=== PATIENT | male | born 1950 | race Caucasian/White ===

== ENCOUNTER 2021-01-17 06:51 | Outpatient (REF) | payer MEDICARE, SELFPAY ==
[2021-01-17 08:16] LABS: MANUAL DIFF FLAG NO
[2021-01-17 08:22] LABS: Basophils Percent Auto 0.5 % (0-2); Eosinophils Percent Auto 0.7 % (0-4); Hematocrit 46.2 % (42-52); Hemoglobin 15.3 g/dl (14.0-18.0); Imm Gran Abs Auto 0.01 X10*3/uL (0.00-0.03); Imm Gran Pct Auto 0.2 % (0.0-0.4); Lymphocytes Absolute Auto 1.5 X10*3/uL (1.2-4.9); Lymphocytes Percent Auto 23.8 % (20-40); Mean Corpuscular HGB Conc 33.1 g/dl (31.0-36.0); Mean Corpuscular Hemoglobin 29.8 pg (27.0-33.0); Mean Corpuscular Volume 89.9 fL (80-98); Mean Platelet Volume 10.6 fL (9.4-12.4); Monocytes Absolute Auto 0.7 X10*3/uL (0.1-1.2); Monocytes Percent Auto 10.8 % (2-11); Neutrophils Absolute Auto 3.9 X10*3/uL (2.0-8.3); Platelet Count 263 X10*3/uL (160-400); Red Blood Count 5.14 X10*6/uL (4.60-5.80); Red Cell Distribution Width 11.9 % (11.0-16.0); White Blood Count 6.1 X10*3/uL (4.8-10.8)
[2021-01-17 08:34] LABS: Estimated Average Glucose 108 mg/dL; Hemoglobin A1c % 5.4 %
[2021-01-17 08:43] LABS: Alanine Aminotransferase 12 U/L (0-40); Albumin Level 4.4 g/dL (3.5-5.0); Alkaline Phosphatase 60 U/L (39-117); Anion Gap 15 (12-20); Aspartate Amino Transferase 15 U/L (5-37); Bilirubin Total 1.5 mg/dL (0.0-1.0); Blood Urea Nitrogen 12 mg/dL (9-16); Calcium 9.6 mg/dL (8.4-10.2); Carbon Dioxide 26 mmol/L (22-29); Chloride 102 mmol/L (96-108); Cholesterol 191 mg/dL; Estimated Glomerular Filt Rate > 60; Glucose Random 101 mg/dL (60-115); HDL Cholesterol 70 mg/dL; LDL Cholesterol Calculated 98 mg/dl; Potassium 4.2 mmol/L (3.3-5.1); Sodium 139 mmol/L (135-145); Total Protein 6.8 g/dL (6.5-8.0); Triglycerides 117 mg/dL
[2021-01-17 09:09] LABS: Prostate Specific Antigen Scr 1.39 ng/mL (<0.05-4.0)
== END 2021-01-17 06:52 | disposition home or self-care (01) ==
LOC: HO.LAB 06:51
PROVIDERS: PCP Internal Medicine; Visit Provider Internal Medicine
DX: E78.00 Pure hypercholesterolemia, unspecified (principal); N40.0 Benign prostatic hyperplasia without lower urinary tract symptoms; R73.03 Prediabetes; R03.0 Elevated blood-pressure reading, without diagnosis of hypertension
CPT/HCPCS: 36415; 80053; 80061; 83036; 84153; 85025

== ENCOUNTER 2022-03-29 06:57 | Outpatient (REF) | payer MEDICARE, SELFPAY ==
[2022-03-29 07:07] LABS: MANUAL DIFF FLAG NO
[2022-03-29 07:28] LABS: Basophils Percent Auto 0.4 % (0-2); Eosinophils Absolute Auto 0.1 X10*3/uL (0.0-0.4); Eosinophils Percent Auto 0.9 % (0-4); Hematocrit 47.1 % (42.0-52.0); Hemoglobin 15.7 g/dl (14.0-18.0); Imm Gran Abs Auto 0.02 X10*3/uL (0.00-0.03); Imm Gran Pct Auto 0.3 % (0.0-0.4); Lymphocytes Absolute Auto 1.6 X10*3/uL (1.2-4.9); Mean Corpuscular HGB Conc 33.3 g/dl (31.0-36.0); Mean Corpuscular Hemoglobin 29.7 pg (27.0-33.0); Mean Corpuscular Volume 89.2 fL (80.0-98.0); Mean Platelet Volume 9.9 fL (9.4-12.4); Monocytes Absolute Auto 0.6 X10*3/uL (0.1-1.2); Neutrophils Absolute Auto 4.7 x10*3/uL (2.0-8.3); Neutrophils Percent Auto 67.4 % (45-73); Platelet Count 266 X10*3/uL (160-400); Red Blood Count 5.28 X10*6/uL (4.60-5.80)
[2022-03-29 07:40] LABS: Appearance Urine Clear; Color Urine Yellow; Glucose Urine UA Negative (Negative); Leukocyte Esterase Urine Negative (Negative); Nitrite Urine Negative (Negative); Specific Gravity - Urine 1.015 (1.005-1.025); Urine Blood Negative (Negative); Urine Ketones 40 mg/dL (Negative); Urine Protein Negative (Neg-Trace)
[2022-03-29 07:56] LABS: Alanine Aminotransferase 20 U/L (0-40); Albumin Level 4.4 g/dL (3.5-5.0); Alkaline Phosphatase 55 U/L (39-117); Anion Gap 17 (12-20); Aspartate Amino Transferase 18 U/L (5-37); Bilirubin Total 1.2 mg/dL (0.0-1.0); Blood Urea Nitrogen 13 mg/dL (9-16); Calcium 9.3 mg/dL (8.4-10.2); Carbon Dioxide 24 mmol/L (22-29); Chloride 103 mmol/L (96-108); Cholesterol 201 mg/dL; Estimated Glomerular Filt Rate > 60; Glucose Fasting 94 mg/dL (60-99); HDL Cholesterol 67 mg/dL; LDL Cholesterol Calculated 116 mg/dl; Potassium 4.3 mmol/L (3.3-5.1); Sodium 140 mmol/L (135-145); Total Protein 6.8 g/dL (6.5-8.0); Triglycerides 92 mg/dL
[2022-03-29 08:17] LABS: Prostate Specific Antigen 1.14 ng/mL (<0.05-4.0)
== END 2022-03-29 06:58 | disposition home or self-care (01) ==
LOC: HO.LAB 06:57
PROVIDERS: PCP Internal Medicine; Visit Provider Internal Medicine
DX: N40.0 Benign prostatic hyperplasia without lower urinary tract symptoms (principal); E78.00 Pure hypercholesterolemia, unspecified; Z12.5 Encounter for screening for malignant neoplasm of prostate
CPT/HCPCS: 36415; 80053; 80061; 81003; 84153; 85025

== ENCOUNTER 2023-05-16 07:27 | Outpatient (REF) | payer MEDICARE, SELFPAY ==
[2023-05-16 07:40] LABS: MANUAL DIFF FLAG NO
[2023-05-16 08:49] LABS: Basophils Percent Auto 0.5 % (0-2); Eosinophils Absolute Auto 0.1 X10*3/uL (0.0-0.4); Hematocrit 46.7 % (42.0-52.0); Hemoglobin 15.5 g/dl (14.0-18.0); Imm Gran Abs Auto 0.01 X10*3/uL (0.00-0.03); Imm Gran Pct Auto 0.2 % (0.0-0.4); Lymphocytes Absolute Auto 1.7 X10*3/uL (1.2-4.9); Lymphocytes Percent Auto 27.2 % (20-40); Mean Corpuscular HGB Conc 33.2 g/dl (31.0-36.0); Mean Corpuscular Hemoglobin 29.5 pg (27.0-33.0); Mean Platelet Volume 10.5 fL (9.4-12.4); Monocytes Absolute Auto 0.6 X10*3/uL (0.1-1.2); Monocytes Percent Auto 9.7 % (2-11); Neutrophils Absolute Auto 3.7 x10*3/uL (2.0-8.3); Neutrophils Percent Auto 61.4 % (45-73); Platelet Count 261 X10*3/uL (160-400); Red Blood Count 5.25 X10*6/uL (4.60-5.80); Red Cell Distribution Width 12.3 % (11.0-16.0); White Blood Count 6.1 X10*3/uL (4.8-10.8)
[2023-05-16 09:14] LABS: Alanine Aminotransferase 16 U/L (0-40); Albumin Level 4.3 g/dL (3.5-5.0); Alkaline Phosphatase 57 U/L (39-117); Anion Gap 16 (12-20); Aspartate Amino Transferase 18 U/L (5-37); Bilirubin Total 1.4 mg/dL (0.0-1.0); Blood Urea Nitrogen 12 mg/dL (9-16); Calcium 9.1 mg/dL (8.4-10.2); Carbon Dioxide 24 mmol/L (22-29); Chloride 102 mmol/L (96-108); Cholesterol 184 mg/dL (<200); Estimated Glomerular Filt Rate > 60; Glucose Fasting 98 mg/dL (60-99); HDL Cholesterol 70 mg/dL (>40); LDL Cholesterol Calculated 97 mg/dL (<100); Potassium 4.4 mmol/L (3.3-5.1); Sodium 138 mmol/L (135-145); Triglycerides 85 mg/dL (<150)
[2023-05-16 09:33] LABS: Prostate Specific Antigen 1.31 ng/mL (<0.05-4.0)
== END 2023-05-16 07:28 | disposition home or self-care (01) ==
LOC: HO.LAB 07:27
PROVIDERS: PCP Internal Medicine; Visit Provider Internal Medicine
DX: Z12.5 Encounter for screening for malignant neoplasm of prostate (principal); E78.00 Pure hypercholesterolemia, unspecified; N40.0 Benign prostatic hyperplasia without lower urinary tract symptoms
CPT/HCPCS: 36415; 80053; 80061; 84153; 85025

== ENCOUNTER 2024-05-20 08:58 | Day surgery (SDC) | payer MEDICARE, SELFPAY ==
[2024-05-18 14:59] VITALS: BMI 24.0
--- NOTE | 2024-05-19 08:51 | P.CONAN_ITS ---
Documented by User: Brittani Low NP 05/19/24 08:51 HPI - Anesthesia Eval Consult details Narrative: 73yo M for Colonoscopy [facility] Past Medical History Medical History Hyperlipidemia Surgical History Surgical History Hx of basal cell carcinoma excision Hx of tonsillectomy H/O colonoscopy Social History Social History Household Members Other:: lives alone Are you a primary managed care coordinator to a significant other at home: No Do you presently have visiting nurse or other home services: No Patient Tobacco Use Status: Never used Tobacco Use of substances other than those prescribed or required for medical reasons: No Have you been hit, kicked, punched, or otherwise hurt by someone within the past year? If so, by whom?: No Are you DNR?: No Advance Directives: No Advance Directives Information Provided: Yes Recently lost weight without trying: No Nutrition Risks: No Nutritional Risk Poor oral hygiene: No Meds Allergies Allergy/AdvReac Type Severity Reaction Status Date / Time No Known Allergies Allergy Verified 05/20/24 09:01 Home Medications ?Medication ?Instructions ?Recorded ?Confirmed ?Last Taken ?Type atorvastatin 10 mg tablet 10 mg PO DAILY 05/18/24 05/18/24 Unknown History cholecalciferol (vitamin D3) 25 25 mcg PO DAILY 05/18/24 05/18/24 Unknown History mcg (1,000 unit) capsule (Vitamin D3) Exam Height,Weight and Vital Signs: Height 5 ft 9.75 in Weight 75.296 kg Assessment and Plan Assessment Anesthesia Assessment: Chart Reviewed Documented by User: Catherine Lopez MD 05/20/24 10:55 PMFSH Past Medical History Medical History Hyperlipidemia Family History Family history of problems with anesthesia: No Surgical History Surgical History Hx of basal cell carcinoma excision Hx of tonsillectomy H/O colonoscopy History of Problems with Anesthesia: No Social History Social History Household Members Other:: lives alone Are you a primary managed care coordinator to a significant other at home: No Do you presently have visiting nurse or other home services: No Patient Tobacco Use Status: Never used Tobacco Use of substances other than those prescribed or required for medical reasons: No Have you been hit, kicked, punched, or otherwise hurt by someone within the past year? If so, by whom?: No Are you DNR?: No Advance Directives: No Advance Directives Information Provided: Yes Recently lost weight without trying: No Nutrition Risks: No Nutritional Risk Poor oral hygiene: No Meds Allergies Allergy/AdvReac Type Severity Reaction Status Date / Time No Known Allergies Allergy Verified 05/20/24 09:01 Home Medications ?Medication ?Instructions ?Recorded ?Confirmed ?Last Taken ?Type atorvastatin 10 mg tablet 10 mg PO DAILY 05/18/24 05/18/24 Unknown History cholecalciferol (vitamin D3) 25 25 mcg PO DAILY 05/18/24 05/18/24 Unknown History mcg (1,000 unit) capsule (Vitamin D3) Exam Airway Mallampati Class: II TM Dist: >3cm Heart: rrr Lungs: cta Assessment and Plan Assessment Anesthesia Assessment: Anesthesia Plan Discussed Final Anesthetic Review Family History of Problems with Anesthesia: No History of Problems with Anesthesia: No NPO: Yes ASA Class: II Final Preanesthetic Review: No Changes in Pt Med Stat, Meds/Allgs Chart Reviewed, Consent Obtained/Reviewed and Anes Risks/Benef Reviewed Patient Risk: Low Procedure Risk: Low Anesthetic Plan Anesthetic Plan: MAC: Disposition: Standard PACU
--- OUTSIDE RECORDS SUMMARY | 2024-05-20 09:00 | XMS_ITS ---
Author Organization [facility] Address [address] [place] [address] Care Team Providers Care Human Resource Manager Name Role Phone Eliseo Ferrari MD Primary Care Provider Carlos Arreola Unavailable [phone] REASON FOR VISIT screening Encounters Encounter Location Date Provider Diagnosis [facility] Outpatient [address] [place] [phone] 05/20/2024 Carlos Bonds PLAN OF TREATMENT Next Appt Details Provider Name:Carlos Bonds , 05/20/2024 10:40:00 AM, [address] [place] [address], [phone],
--- OUTSIDE RECORDS SUMMARY | 2024-05-20 09:00 | XMS_ITS ---
Author Organization [facility] Address [address] [place] [address] Care Team Providers Care Mail Processing Clerk Name Role Phone Eliseo Ferrari MD Primary Care Provider Unavaila Carlos Parikh Unavailable [phone] Delvis Lau, Froilan Unavailable [phone] REASON FOR VISIT Patient presents today for a COLON RECALL Encounters Encounter Location Date Provider Diagnosis [facility] [address] [place] [phone] 02/05/2024 Froilan Edmondson Jr PLAN OF TREATMENT Next Appt Details Provider Name:Carlos Bonds , 05/20/2024 10:40:00 AM, [address] [facility] , [place], [place], [phone],
--- OUTSIDE RECORDS SUMMARY | 2024-05-20 09:00 | XMS_ITS ---
Author Organization [facility] Address [address] [place] [address] Care Team Providers Care Sed High School Teacher Name Role Phone Eliseo Ferrari MD Primary Care Provider Carlos Arreola Unavailable [phone] ALLERGIES No Known Allergies REASON FOR VISIT Patient presents today for a colon recall MEDICATIONS Medication SIG (Take, Route, Frequency, Duration) Notes Start Date End Date Status Vitamin D Active Lipitor 10mg Active SOCIAL HISTORY Sex Assigned At : Social History Observation Description Sex Assigned At Unknown Alcohol Screen Question Answer Notes Did you have a drink contain ing alcohol in the past year? Yes Points 4 Interpretation Positive How often did you have 6 or more drinks on one occasion in the past year? Never (0 point) How many drinks did you have on a typical day when you were drinking in the past year? 1 or 2 drinks (0 point) How often did you have a dri nk containing alcohol in the past year? 4 or more times a week (4 points) PROBLEMS Problem Type ICD Code Onset Dates Problem Status W/U Status Risk SNOMED Code Notes Problem Colon cancer screening (Z12.11) Active confirmed Colon cancer screening (701344009) Problem Encounter for other preprocedural examination (Z01.818) Active confirmed Pre-procedure evaluation check (833422221) VITAL SIGNS BMI 23.99 kg/m2 02/04/2024 Blood pressure systolic 00 mm Hg 02/04/20 24 Blood pressure diastolic 00 mm Hg 024 Height 69.75 in 02/04/2024 Weight 166 lbs 02/04/2024 Encounters Encounter Location Date Provider Diagnosis [facility] [address] [place] [address] 02/04/2024 Carlos Bonds Colon cancer screeni ng Z12.11 and Encounter for other preprocedural examination Z01.818 ASSESSMENTS Encounter Date Diagnosis Assessment Notes Treatment Notes Treatment Clinical Notes 02/04/2024 Colon cancer screening (ICD-10 - Z12.11) 02/04/2024 Encounter for other preprocedural examination (ICD-10 - Z01.818) PLAN OF TREATMENT Future Test Test Name Order Date COLONOSCOPY 02/04/2024 Next Appt Details Follow Up: prn, Reason: Provider Name:Carlos Bonds , 05/20/2024 10:40:00 AM, [address] [place] [address] , [place], [place], [phone], Progress Notes * Examination Category Sub-Category Detail Notes General Examination GENERAL APPEARANCE: pleasant , well nourished, well developed, in no acute distress EYES: sclera non-icteric NECK/THYROID: no cervical lymphade nopathy, neck supple HEART: S1, S2 normal LUNGS: clear to auscultatio n bilaterally ABDOMEN: normal bowel sounds, no guarding or rigidity, no hepatosplenomegaly, no masses palpable, soft, nontender, nondistended. NEUROLOGIC: alert and oriented SKIN: nonjaundiced, no spi praneeth angiomata. EXTREMITIES: no edema ORAL CAVITY: mucosa moist
--- OUTSIDE RECORDS SUMMARY | 2024-05-20 09:01 | XMS_ITS | Patient Health Record ---
Author Organization [facility] Address [address] [place] [address] Care Team Providers Care Veterinary Pharmacologist Name Role Phone Eliseo Ferrari MD Primary Care Provider Carlos Arreola Unavailable [phone] Froilan Edmondson Jr Unavailable ALLERGIES No Known Allergies REASON FOR REFERRAL No Information MEDICATIONS Medication SIG (Take, Route, Frequency, Duration) Notes Start Date End Date Status Vitamin D Active Lipitor 10mg Active SOCIAL HISTORY Sex Assigned At : Social History Observation Description Sex Assigned At Unknown PROBLEMS Problem Type ICD Code Onset Dates Problem Status W/U Status Risk SNOMED Code Notes Problem Colon cancer screening (Z12.11) Active confirmed Colon cancer screening (926981410) Problem Encounter for other preprocedural examination (Z01.818) Active confirmed Pre-procedure evaluation check (973854659) VITAL SIGNS Blood pressure diastolic 00 mm Hg 02/04/2024 Height 69.75 in 02/04/2024 Blood pressure systolic 00 mm Hg 02/04/2024 Weight 166 lbs 02/04/2024 BMI 23.99 kg/m2 02/04/2024 Encounters Encounter Location Date Provider [place] [facility] [place] [address] [place] [phone] 05/20/2024 Carlos Bonds [facility] [address] [place] [phone] 02/05/2024 Froilan Edmondson Jr [facility] [address] [place] [phone] 02/04/2024 Carlos Bonds Colon cancer screening Z12.11 and Encounter for other preprocedural examination Z01.818 [facility] [address] [place] [address] 11/22/2023 Carlos Bonds ASSESSMENTS Encounter Date Diagnosis Assessment Notes Treatment Notes Treatment Clinical Notes 02/04/2024 Colon cancer screening (ICD-10 - Z12.11) 02/04/2024 Encounter for other preprocedural examination (ICD-10 - Z01.818) PLAN OF TREATMENT Future Test Test Name Order Date COLONOSCOPY 09/09/2013 COLONOSCOPY 02/04/2024 Next Appt Details Provider Name:Carlos Bonds , 05/20/2024 10:40:00 AM, [address] [facility] , [place], [place], [phone], Insurance Providers Payer Name Payer Address Payer Phone Subscriber Number Group Number Insured Name Patient Relationship to Insured Coverage Start Date Coverage End Date MEDICARE OF [place] [address] [place] [address] [id number] MARK MONROE Self - patient is the insured [employer] ATT[employer] CLAIMS [address] [place] [address] [phone] [id number] MARK MONROE Self - patient is the insured MEDICAL (GENERAL) HISTORY Medical History History ICD Code Hyperlipidemia Denies MD,DM,CVA,Lung disease,renal dise ase Colonoscopy in 10/2003-neg ex cept for internal hemorrhoids and sigmoid diverticulosis Negative screening colonoscopy in October of 2013 Surgical History Surgery Date(Month/Year) Tonsillectomy Basal cell ca removed from scalp
[2024-05-20 09:08] VITALS: BMI 23.6
[2024-05-20 09:25] VITALS: BP 176/85; PULSE 77; RESP 16; TEMP 36.3; O2SAT 100
[2024-05-20 12:07] VITALS: BP 105/57; PULSE 71; RESP 12; TEMP 36.7; O2SAT 96
--- NOTE | 2024-05-20 12:08 | P.BOP_ITS ---
Brief Operative Note Date of Service: 05/20/24 Pre-op diagnosis: Screening Post-op diagnosis: other (Polyps) Procedure: Colonoscopy to the cecum with hot snare polypectomy x 2 Surgeon: Carlos Bonds MD Anesthesia: MAC Was an Dispatcher Radioactive Waste Disposal used for this Procedure?: No Estimated blood loss (mL): 0 Pathology: other (A. Polyp at 20cm B. Transverse colon polyp) Condition: stable Disposition: PACU
--- NOTE | 2024-05-20 12:27 | OP_ITS ---
DATE OF SERVICE: 05/20/2024 SURGEON: Carlos Bonds MD INDICATIONS: The patient presents for evaluation of colorectal cancer screening. Full consent has been obtained from him for this, including risks of bleeding and perforation. PREOPERATIVE DIAGNOSIS: POSTOPERATIVE DIAGNOSIS: Colorectal cancer screening. PROCEDURE PERFORMED: Colonoscopy to the cecum with hot snare polypectomy x2. ESTIMATED BLOOD LOSS: COMPLICATIONS: ANESTHESIA: Monitored anesthesia care. ASSISTANTS: SPECIMENS: PREOPERATIVE DIAGNOSES: Colorectal cancer screening, colon polyps, diverticulosis, and internal hemorrhoids. DESCRIPTION OF PROCEDURE: The patient was placed in the left lateral decubitus position. The digital rectal exam revealed no abnormalities. The Olympus video pediatric colonoscope was then entered into the rectum and advanced easily to the cecum. Once in the cecum, I did identify normal-appearing cecal pouch with appendiceal orifice and a normal-appearing ileocecal valve. There was transillumination of light deep in the right lower quadrant. The entire cecum and ileocecal valve were well visualized and appeared normal. The scope was slowly withdrawn assessing all mucosal surfaces carefully. Preparation was excellent. In the transverse colon and at 20 cm, were approximately 8 to 10 mm polyps, which were both snared with hot snare polypectomy and recovered by suction. The polypectomy site appeared clean, without any sign of residual polyp nor bleeding. I did not visualize any other polyps, colitis, nor angiodysplasias. There was a mild amount of sigmoid diverticulosis. In the rectum, scope was retroflexed, visualizing internal hemorrhoids, but no other pathology. The rectal mucosa appeared normal. The scope was straightened and withdrawn from the patient. He tolerated the procedure well and was returned to the recovery area in stable condition. IMPRESSION: 1. Colon polyps. 2. Diverticulosis. 3. Internal hemorrhoids. PLAN: The results of the pathology will be checked. If either of these are tubular adenoma, I would recommend a followup colonoscopy in 5 years. If they are both hyperplastic, then he would not need any further screening colonoscopies given his age. He was advised not to use any aspirin and NSAIDs for 1 week. MD KAREN Rod/JUAQUIN / [id number]
[2024-05-20 12:31] VITALS: BP 134/83; PULSE 65; RESP 17; TEMP 36.7; O2SAT 99
== END 2024-05-20 13:00 | disposition home or self-care (01) ==
PROVIDERS: PCP Internal Medicine; Visit Provider Internal Medicine
PROC: 0DJD8ZZ Inspection of Lower Intestinal Tract, Via Natural or Artificial Opening Endoscopic (ICD-10-PCS; CPT 45378; principal; 2024-05-20 10:40)
DX: Z12.11 Encounter for screening for malignant neoplasm of colon (principal); D12.3 Benign neoplasm of transverse colon; D12.5 Benign neoplasm of sigmoid colon; K57.30 Diverticulosis of large intestine without perforation or abscess without bleeding; K64.8 Other hemorrhoids; E78.5 Hyperlipidemia, unspecified; Z79.899 Other long term (current) drug therapy
CPT/HCPCS: 45385; 88305; J2003; J2250; J2704

== ENCOUNTER 2024-07-01 07:19 | Outpatient (REF) | payer MEDICARE, SELFPAY ==
[2024-07-01 07:34] LABS: MANUAL DIFF FLAG NO
[2024-07-01 07:56] LABS: Basophils Percent Auto 0.5 % (0-2); Eosinophils Absolute Auto 0.1 X10*3/uL (0.0-0.4); Hemoglobin 15.6 g/dl (14.0-18.0); Imm Gran Abs Auto 0.01 X10*3/uL (0.00-0.03); Imm Gran Pct Auto 0.2 % (0.0-0.4); Lymphocytes Absolute Auto 1.6 X10*3/uL (1.2-4.9); Lymphocytes Percent Auto 25.4 % (20-40); Mean Corpuscular HGB Conc 33.9 g/dl (31.0-36.0); Mean Corpuscular Volume 88.5 fL (80.0-98.0); Mean Platelet Volume 9.5 fL (9.4-12.4); Monocytes Absolute Auto 0.6 X10*3/uL (0.1-1.2); Monocytes Percent Auto 9.4 % (2-11); Neutrophils Percent Auto 63.5 % (45-73); Platelet Count 266 X10*3/uL (160-400); Red Cell Distribution Width 12.6 % (11.0-16.0); White Blood Count 6.3 X10*3/uL (4.8-10.8)
[2024-07-01 08:10] LABS: Appearance Urine Clear; Color Urine Yellow; Glucose Urine UA Negative (Negative); Leukocyte Esterase Urine Negative (Negative); Nitrite Urine Negative (Negative); PH 6.5 (5.0-9.0); Urine Blood Negative (Negative); Urine Ketones 15 mg/dL (Negative); Urine Protein Negative (Neg-Trace)
[2024-07-01 08:32] LABS: Alanine Aminotransferase 20 U/L (0-40); Albumin Level 4.3 g/dL (3.5-5.0); Alkaline Phosphatase 63 U/L (39-117); Anion Gap 16 (12-20); Aspartate Amino Transferase 22 U/L (5-37); Bilirubin Total 1.3 mg/dL (0.0-1.0); Blood Urea Nitrogen 13 mg/dL (9-16); Calcium 9.3 mg/dL (8.4-10.2); Carbon Dioxide 27 mmol/L (22-29); Chloride 101 mmol/L (96-108); Cholesterol 193 mg/dL (<200); Estimated Glomerular Filt Rate > 60; Glucose Fasting 115 mg/dL (60-99); HDL Cholesterol 74 mg/dL (>40); LDL Cholesterol Calculated 93 mg/dL (<100); Sodium 140 mmol/L (135-145); Triglycerides 133 mg/dL (<150)
== END 2024-07-01 07:20 | disposition home or self-care (01) ==
LOC: HO.LAB 07:19
PROVIDERS: PCP Internal Medicine; Visit Provider Internal Medicine
DX: E78.00 Pure hypercholesterolemia, unspecified (principal); N40.0 Benign prostatic hyperplasia without lower urinary tract symptoms; Z12.5 Encounter for screening for malignant neoplasm of prostate
CPT/HCPCS: 36415; 80053; 80061; 81003; 84153; 85025

== ENCOUNTER 2025-05-14 08:36 | Outpatient (AMB) | payer MEDICARE, SELFPAY ==
--- OUTSIDE RECORDS SUMMARY | 2024-02-05 06:00 | XMS_ITS ---
Author Organization [facility] Address [address] [place] [phone] Care Team Providers Care Escalator Operator Name Role Phone Vega (RETIRED) Eliseo ASHER Primary Care Provide r Unavailable Carlos Bonds Unavailable [phone] Delvis Lau, Froilan Unavailable REASON FOR VISIT Patient presents today for a COLON RECALL Encounters Encounter Location Date Provider Diagnosis [facility] [address] [place] [phone] 02/05/2024 Froilan Edmondson Jr Plan Of Treatment No Information Progress Notes * MARK MONROE: 9[birth year] (74 yo M)Acc No.[id number]:02/05/2024 Progress Notes Patient: MARK PLUNKETT Provider: Marisol Edmondson MD :1950 A ge:73 Y S ex:Male Date:02/05/2024 Address:[address] [place], [place] [phone] Pcp:Eliseo Ferrari (RETIRED )MD Subjective: * Chief [...] 02/05/2024 Generated for Zach pelletier/Uziel/Umberto on: 1 08:56 AM EDT
--- OUTSIDE RECORDS SUMMARY | 2024-05-20 06:40 | XMS_ITS ---
Author Organization [facility] Address [address] [place] [address] Care Team Providers Care Geophysical E Logger Name Role Phone Vega (RETIRED) Eliseo ASHER Primary Care Provide r Carlos Ross Unavailable [phone] REASON FOR VISIT screening Problems Problem Type SNOMED Code ICD Code Onset Dates Problem Status W/U Status Risk Notes Problem Diverticular disease of colon (967554824) Diverticulosis of large intestine without perforation or abscess without bleeding (K57.30) Active confirmed Encounters Encounter Location Date Provider Diagnosis [facility] [place] [address] [place], [place] [phone] 05/20/2024 Carlos Bonds Colon cancer scree hitesh [...] * MARK MONROE: [birth year] (74 yo M)Acc No.[id number]:05/20/2024 COLON WITH MAC Patient: MARK PLUNKETT Provider: Mik Bonds MD :1950 A ge:73 Y S ex:Male Date:05/20/2024 Address:[address] [place] [address] [place] [facility] Pcp:Eliseo Ferrari (RETIRED )MD Subjective: * Chief [...] Date: 1 Generated for Zach pelletier/Uziel/Carrieitting on: 08:56 AM EDT
[2025-05-14 08:22] VITALS: BP 140/80; PULSE 70; TEMP 36.3; O2SAT 99; BMI 25.3
--- NOTE | 2025-05-14 08:22 | A.OFFPC_ITS ---
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 Accompanied by: Self / Same As Patient Allergies No Known Allergies Allergy (Verified 05/14/25 08:22) Medication List - Last Reconciled 05/14/25 by ANGIE Astudillo atorvastatin 10 mg PO DAILY cholecalciferol (vitamin D3) (Vitamin D3) 25 mcg PO DAILY Tobacco use date assessed: 05/14/25 Fall risk assessment: No Falls in past year Last assessed Fall Risk: 05/14/25 Dental Screening Dental Screen Date: 05/14/25 Did you have a dental visit in the last 12 months?: Yes Did you have a dental problem in the last 6 months where you did not have access to dental care?: No HPI HPI Comments History of Present Illness Details 74-year-old male with history of hyperte nsion, basal cell carcinoma presenting to the office today for management of chronic conditions and to establish care. Former Dr. Ferrari patient, last seen about one year ago. BCC- NEDerm. L ear. 6 month skin checks HLD- atovastatin 10mg daily HTN- multiple elevated blood pressures. No ton antihypertensives Concerns: None Health Maintenance: Colonoscopy 06/04, [address] Bonds ROS: General: No fevers, malaise, unintentional weight loss HEENT: No blurred vision, diplopia. No sore throat, nasal congestion, rhinorrhea, sinus pain, ear pain Cardiovascular: No chest pain, palpitations, or leg edema Respiratory: No shortness of breath, wheezing, cough GI: No abdominal pain, nausea, vomiting, diarrhea, constipation, melena, hematochezia : No dysuria, hematuria, increased urinary frequency, decreased urinary output MSK: No myalgia, back pain Neuro: No headaches, weakness, paresthesias Skin: No rashes or lesions EXAM: Constitutional - Awake and Alert, No apparent distress Eyes - PERRL Cardiovascular - S1S2, RRR, No edema Respiratory - Normal lung expansion, Normal respiratory effort, No respiratory distress, CTA bilaterally Extremities - no calf tenderness bilaterally, no swelling Skin - Warm/Dry Neurological - Alert & oriented x3 Psychological - Appropriate affect [facility] Medical History (Updated 05/14/25 @ 09:27 by ANGIE Astudillo) BCC (basal cell carcinoma of skin) HTN (hypertension) Hyperlipidemia Surgical History Hx of basal cell carcinoma excision Hx of tonsillectomy H/O colonoscopy (~05/20/24) Family History (Updated 05/14/25 @ 08:44 by Judith Banerjee MA) Mother No problems noted. Father No problems noted. Social History Household Members Other:: lives alone Housing: House Are you a primary managed care provider to a significant other at home: No Do you presently have visiting nurse or other home services: No Patient Tobacco Use Status: Never used Tobacco e-Cigarette/Vaping Use: Never Used service: No Current occupational status: retired Cognitive needs: No Hearing needs: No Vision needs: Yes (Rx glasses) Questionnaire PHQ-9 Over the last 2 weeks, how often have you been bothered by any of the following problems? 1. Little interest or pleasure in doing things: not at all 2. Feeling down, depressed, or hopeless: not at all 3. Trouble falling or staying asleep, or sleeping too much: not at all 4. Feeling tired or having little energy: not at all 5. Poor appetite or overeating: not at all 6. Feeling bad about yourself - or that you are a failure or have let yourself or your family down: not at all 7. Trouble concentrating on things, such as reading the newspaper or watching television: not at all 8. Moving or speaking so slowly that other people could have noticed. Or the opposite - being so fidgety or restless that you have been moving around a lot more than usual: not at all 9. Thoughts that you would be better off or of hurting yourself in some way: not at all Total score: 0 Source: Developed by Drs. Carlos Bell, Krysta Pisano, Noman Harkins and colleagues, with an educational lenka from [employer]. Thrive Questionnaire Date Thrive assessed: 05/14/25 I am a: Patient Within the past 12 months, did the food you bought not last and you didn't have the money to get more?: Never true Within the past 12 months, did you worry whether your food would run out before you got money to buy more?: Never true Do you have trouble paying for medicines?: No Do you have trouble getting transportation to medical appointments?: No Do you have trouble paying your heating and electricity bill?: No Do you have trouble taking care of your child, family member or friend?: No Do you have trouble with day-to-day activities such as bathing, preparing meals, shopping, managing finances, etc.?: No Are you currently unemployed and looking for a job?: No Are you interested in more education?: No THRIVE Score: 0 AUDIT C Alcohol Use Questionnaire (AUDIT-C) 1. How often do you have a drink containing alcohol?: Monthly or less 2. How many drinks containing alcohol do you have on a typical day when you are drinking?: 1 or 2 3. How often do you have six or more drinks on one occasion?: Less than monthly Total Score: 2 RENAE-7 AMB Questionnaire RENEA-7 Date RENAE - 7 assessed: 05/14/25 Feeling nervous, anxious, or on edge: 0 = Not at all Not being able to stop or control worryin = Not at all Worrying too much about different things: 0 = Not at all Trouble relaxin = Not at all Being so restless that it is hard to sit still: 0 = Not at all Becoming easily annoyed or irritable: 0 = Not at all Feeling afraid as if something awful might happen: 0 = Not at all Total RENAE-7 score (0-4 normal; 5-9 mild; 10-14 moderate; 15-21 severe): 0 Source: Developed by Drs. Carlos Bell, Krysta Pisano, Noman Harkins and colleagues, with an educational lenka from [employer]. Physical exam (Primary Care) Vital Signs: Last Vital Signs Temp 97.3 F 05/14/25 08:22 Pulse 70 05/14/25 08:22 BP 150/66 H 05/14/25 09:26 Pulse Ox 99 05/14/25 08:22 Oxygen Delivery Method Room Air 05/14/25 08:22 BMI result Body Mass Index 25.3 Tobacco/Smoking Status: Tobacco use Status Tobacco use date assessed 05/14/25 05/14/25 08:23 Patient Tobacco Use Status Never used Tobacco 05/14/25 08:23 e-Cigarette/Vaping Use Never Used 05/14/25 08:23 PHQ-9: PHQ-9 Score PHQ-9: Total score 0 05/14/25 09:10 Thrive Assessment: Date of Thrive Assessment Date Thrive assessed 05/14/25 05/14/25 08:23 Coding Level of Care Code New Pt Level 4 (96673) Complex EM visit Add On G2211 Diagnoses Hyperlipidemia E78.5 HTN (hypertension) I10 BCC (basal cell carcinoma of skin) C44.91 Assessment & Plan Assessment & Plan (1) Hyperlipidemia: Code(s): E78.5 - Hyperlipidemia, unspecified Category: Medical Plan: Previously at goal. Updated lipid profile ordered. Continue atorvastatin and diet low in saturated fats and highly processed foods (2) HTN (hypertension): Code(s): I10 - Essential (primary) hypertension Category: Medical Plan: Newly diagnosed. Initiating lisinopril 10 mg daily. Counseled on dosing and side effects. (3) BCC (basal cell carcinoma of skin): Code(s): C44.91 - Basal cell carcinoma of skin, unspecified Category: Medical Plan: Continue following with [facility] Plan Follow-up in 6 months. Labs to be completed in the next few weeks Orders: Orders Lipid Panel Today E78.5 - Hyperlipidemia, unspecified, I10 - Essential (primary) hypertension Liver Panel Today E78.5 - Hyperlipidemia, unspecified, I10 - Essential (pr imary) hypertension Basic Metabolic Panel Today E78.5 - Hyperlipidemia, unspecified, I10 - Essential (primary) hypertension Prostate Specific Antigen Today E78.5 - Hyperlipidemia, unspecified, I10 - Essential (primary) hypertension Medications: New lisinopril 10 mg PO DAILY 90 tabs 1RF
--- OUTSIDE RECORDS SUMMARY | 2025-05-14 08:56 | XMS_ITS | Patient Health Record ---
Author Organization [facility] Address [address] [place] [address] Care Team Providers Care Exhibits Coordinator Name Role Phone Vega (RETIRED) Eliseo ASHER Primary Care Provide r Carlos Ross Unavailable [phone] Allergies No Known Allergies Results Component Value Reference Range Notes Pathology (Not yet reviewed by provider) Interpretation: Performing Lab:[facility], [address] [place] [phone] Notes/Report: Reason For Referral No Information Medications Medication SIG (Take, Route, Frequency, Duration) Notes Start Date End Date Status Vitamin D Active Lipitor 10mg Active Problems Problem Type SNOMED Code ICD Code Onset Dates Problem Status W/U Status Risk Notes Problem Colon cancer screening (198994158) Colon cancer screening (Z12.11) Active confirmed Problem Pre-procedure evaluation check (527423722) Encounter for other preprocedural examination (Z01.818) Active confirmed Problem Diverticular disease of colon (344255267) Diverticulosis of large intestine without perforation or abscess without bleeding (K57.30) Active confirmed Encounters Encounter Location Date Provider Diagnosis [facility] [address] [place] [phone] 05/20/2024 Carlos Bonds Colon cancer scree hitesh [...] hemorrhoids (ICD-10 - K64.8) Plan Of Treatment Pending Test Test Name Order Date Pathology 05/20/2024 Future Test Test Name Order Date COLONOSCOPY 09/09/2013 COLONOSCOPY 02/04/2024 Insurance Providers Payer Name Payer Address Payer Phone Subscriber Number Group Number Insured Name Patient Relationship to Insured Coverage Start Date Coverage End Date MEDICARE OF [place] [address] [facility] [place] [address] [id number] MARK MONROE Self - patient is the insured [employer] ATT[employer] CLAIMS [address] [place] [address] [id number] MARK MONROE Self - patient is the insured Medical (General) History Medical History History ICD Code Hyperlipidemia Denies [place],DM,CVA,Lung disease,renal dise ase Colonoscopy in 10/2003-neg ex cept for internal hemorrhoids and sigmoid diverticulosis Negative screening colonoscopy in October of 2013 Surgical History Surgery Date(Month/Year) Tonsillectomy Basal cell ca removed from scalp
--- OUTSIDE RECORDS SUMMARY | 2025-05-14 08:56 | XMS_ITS ---
Author Name [facility] Organization Unknown History of Medication Use Medication Directions Dispensed Refills Start Date End Date Stat us carbamide peroxide (Debrox) 6.5 % otic solution Administer 5 drops into both ears 2 (two) times a day for 10 days 03/05/2025 active atorvastatin (LIPITOR) 10 MG tablet TAKE 1 TABLET BY MOUTH EVERYDAY AT BEDTIME 01/09/2025 active ibuprofen (MOTRIN) 400 MG tablet PLEASE SEE ATTACHED FOR DETAILED DIRECTIONS 12/03/2024 active Problems Problem Status Onset Date Problem Type Date of Resolution Source Bilateral impacted cerumen active EncounterDiagnosisAct CT [facility] Encounters Encounter Type Encounter Reason Primary Diagnosis Location Date Ambulatory Ear Complaint Impacted cerumen , bilateral [facility] 03/05/2025 Care Team Organization Name Specialty Phone Email Start Date End Da te [facility] NO PCP Primary Care 03/05
[2025-05-14 09:26] VITALS: BP 150/66
== END 2025-05-14 09:28 | disposition home or self-care (01) ==
LOC: HO.HMCHD 08:37
PROVIDERS: PCP Physician Assistant; Visit Provider Physician Assistant
DX: E78.5 Hyperlipidemia, unspecified (principal); I10 Essential (primary) hypertension; C44.91 Basal cell carcinoma of skin, unspecified

== ENCOUNTER → 2025-05-14 08:36 | Outpatient (BNVA) | payer MEDICARE, SELFPAY | PROVIDERS: PCP Physician Assistant; Visit Provider Physician Assistant | DX: E78.5 Hyperlipidemia, unspecified (principal); I10 Essential (primary) hypertension; C44.219 Basal cell carcinoma of skin of left ear and external auricular canal; Z13.30 Encounter for screening examination for mental health and behavioral disorders, unspecified; Z13.39 Encounter for screening examination for other mental health and behavioral disorders | CPT/HCPCS: 96127; 99202 ==

== ENCOUNTER 2025-06-24 07:36 | Outpatient (REF) | payer MEDICARE, SELFPAY ==
--- OUTSIDE RECORDS SUMMARY | 2024-02-05 05:00 | XMS_ITS ---
Author Organization [facility] Address [address] [place] [phone] Care Team Providers Care Drawing Box Tender Name Role Phone Vega (RETIRED) Eliseo ASHER Primary Care Provide r Unavailable Carlos Bonds Unavailable [phone] Delvis Lau, Froilan Unavailable REASON FOR VISIT Patient presents today for a COLON RECALL Encounters Encounter Location Date Provider Diagnosis [facility] [address] [place] [phone] 02/05/2024 Froilan Edmondson Jr Plan Of Treatment No Information Progress Notes * MARK MONROE: [birth year] (74 yo M)Acc No.[id number]:02/05/2024 Progress Notes Patient: MARK PLUNKETT Provider: Marisol Edmondson MD :1950 A ge:73 Y S ex:Male Date:02/05/2024 Address:[address] [place], [place] [phone] Pcp:Eliseo Ferrari (RETIRED )MD Subjective: * Chief Complaints: * 1 . Patient presents today for a COLON RECALL. * Medical History: Objective: * Vitals: Assessment: Plan: * Treatment: * * The named appointment provid er may or may not be the originator of this progress note, and it is not deemed complete until electronically signed by the appointment provider. Sign off status: Pending * Provider: Marisol Edmondson MD Date: 0 02/05/2024 Generated for Zach pelletier/Uziel/Umberto on: 1 08/24/2024 07:38 AM EST
--- OUTSIDE RECORDS SUMMARY | 2024-05-20 05:40 | XMS_ITS ---
Author Organization [facility] Address [address] [place] [address] Care Team Providers Care Dispatcher Service Or Work Name Role Phone Vega (RETIRED) Eliseo ASHER Primary Care Provide r Carlos Ross Unavailable [phone] REASON FOR VISIT screening Problems Problem Type SNOMED Code ICD Code Onset Dates Problem Status W/U Status Risk Notes Problem Diverticular disease of colon (059492223) Diverticulosis of large intestine without perforation or abscess without bleeding (K57.30) Active confirmed Encounters Encounter Location Date Provider Diagnosis [facility] [place] [address] [place] [phone] 05/20/2024 Carlos Bonds Colon cancer scree hitesh Z12.11 ; Colon polyps K63.5 ; Diverticulosis of large intestine without perforation or abscess without bleeding K57.30 and Other hemorrhoids K64.8 Assessments Encounter Date Diagnosis (ICD Code) Assessment Notes Treatment Notes Treatment Clinical Notes Section Notes 05/20/2024 Colon cancer screening (ICD-10 - Z12.11) 05/20/2024 Colon polyps (ICD-10 - K63.5) 05/20/2024 Diverticulosis of large intestine without perforation or abscess without bleeding (ICD-10 - K57.30) 05/20/2024 Other hemorrhoids (ICD-10 - K64.8) Plan Of Treatment No Information Progress Notes * MARK MONROE: [birth year] (74 yo M)Acc No.[id number]:05/20/2024 COLON WITH MAC Patient: MARK PLUNKETT Provider: Mik Bonds MD :1950 A ge:73 Y S ex:Male Date:05/20/2024 Address:[address] [place] [address] [place] [facility] Pcp:Eliseo Ferrari (RETIRED )MD Subjective: * Chief Complaints: * 1 . Screening. * Medical History: Objective: * Vitals: Assessment: * Assessment: 1. C olon cancer screening - Z12.11 (Primary) 2 . C olon polyps - K63.5? 3. D iverticulosis of large intestine without perforation or abscess without bleeding - K57.30 4 . O ther hemorrhoids - K64.8 Plan: * Treatment: * Procedure Codes: 4 5385 LESION REMOVAL COLONOSCOPY, Modifiers: PT , 0529F INTRVL 3+YRS PTS CLNSCP DOCD, 0528F RCMND FLW-UP 10 YRS DOCD, Modifiers: 1P * * The named appointment provid er may or may not be the originator of this progress note, and it is not deemed complete until electronically signed by the appointment provider. Sign off status: Pending * Provider: Mik Bonds MD Date: 1 Generated for Zach pelletier/Uziel/Carrieitting on: 08/24/2024 07:38 AM EST
--- OUTSIDE RECORDS SUMMARY | 2025-06-24 07:38 | XMS_ITS | Patient Health Record ---
Author Organization [facility] Address [address] [place] [address] Care Team Providers Care Concrete Paving Machine Operator Name Role Phone Vega (RETIRED) Eliseo ASHER Primary Care Provide r Unavailable Carlos Bonds Unavailable [phone] Allergies No Known Allergies Reason For Referral No Information Medications Medication SIG (Take, Route, Frequency, Duration) Notes Start Date End Date Status Vitamin D Active Lipitor 10mg Active Problems Problem Type SNOMED Code ICD Code Onset Dates Problem Status W/U Status Risk Notes Problem Colon cancer screening (068983108) Colon cancer screening (Z12.11) Active confirmed Problem Pre-procedure evaluation check (445829783) Encounter for other preprocedural examination (Z01.818) Active confirmed Problem Diverticular disease of colon (335216839) Diverticulosis of large intestine without perforation or abscess without bleeding (K57.30) Active confirmed Plan Of Treatment Pending Test Test Name Order Date Pathology 05/20/2024 Future Test Test Name Order Date COLONOSCOPY 09/09/2013 COLONOSCOPY 02/04/2024 Insurance Providers Payer Name Payer Address Payer Phone Subscriber Number Group Number Insured Name Patient Relationship to Insured Coverage Start Date Coverage End Date MEDICARE OF [place] [address] [place] [address] [id number] MARK MONROE Self - patient is the insured MED[employer] ATTN CLAIMS [address] [place] [address] [phone] [id number] MARK MONROE Self - patient is the insured Medical (General) History Medical History History ICD Code Hyperlipidemia Denies [place],DM,CVA,Lung disease,renal dise ase Colonoscopy in 10/2003-neg ex cept for internal hemorrhoids and sigmoid diverticulosis Negative screening colonoscopy in October of 2013 Surgical History Surgery Date(Month/Year) Tonsillectomy Basal cell ca removed from scalp
[2025-06-24 08:54] LABS: Alanine Aminotransferase 18 U/L (0-40); Albumin Level 4.8 g/dL (3.5-5.0); Alkaline Phosphatase 65 U/L (39-117); Anion Gap 16 (12-20); Aspartate Amino Transferase 23 U/L (5-37); Blood Urea Nitrogen 11 mg/dL (9-16); Calcium 9.5 mg/dL (8.4-10.2); Carbon Dioxide 25 mmol/L (22-29); Chloride 102 mmol/L (96-108); Cholesterol 176 mg/dL (<200); Estimated Glomerular Filt Rate > 60; HDL Cholesterol 69 mg/dL (>40); Potassium 4.1 mmol/L (3.3-5.1); Sodium 139 mmol/L (135-145); Total Protein 7.4 g/dL (6.5-8.0); Triglycerides 94 mg/dL (<150)
[2025-06-24 09:08] LABS: Prostate Specific Antigen 1.46 ng/mL (<0.05-4.0)
== END 2025-06-24 07:37 | disposition home or self-care (01) ==
LOC: HO.10HDL 07:36
PROVIDERS: Visit Provider Physician Assistant
DX: I10 Essential (primary) hypertension (principal); E78.5 Hyperlipidemia, unspecified; Z12.5 Encounter for screening for malignant neoplasm of prostate
CPT/HCPCS: 36415; 80048; 80061; 80076; 84153

== ENCOUNTER → 2025-07-02 08:39 | Outpatient (BNVA) | payer MEDICARE, SELFPAY | PROVIDERS: PCP Physician Assistant; Visit Provider Physician Assistant | DX: I10 Essential (primary) hypertension (principal); Z01.30 Encounter for examination of blood pressure without abnormal findings | CPT/HCPCS: 99211 ==